=== PATIENT | female | born 1985 | race American Indian/Alaskan Native ===

== ENCOUNTER 2016-12-26 22:41 | Emergency (ER) | payer OTHER ==
--- NOTE | 2016-12-26 23:57 | Emergency Department Report ---
HPI - General Chief Complaint: Overdose Time Seen by Provider: 12/26/16 23:38 - HPI HPI: This is a 31-year-old female presents to the emergency department by EMS from home after she took about 8 Percocet with the intent of harming herself about one hour prior to presentation. She was feeling very sleepy/drowsy. EMS gave her a dose of Narcan and she had a blood sugar at that time of 50 and was given a one half amp of D50. Currently she is very quiet but denies any complaints. She does admit that she was doing to harm her self. Her is at bedside during the history and physical, with permission from the patient herself, but he does not appear to think that the patient did this to harm herself. She is about 3 months status post giving and says that there has been some depression since that time. She herself says that there is some previous depression. She denies any hallucinations or homicidal ideations. She denies any other past medical history. ED Past Medical Hx - Past Medical History Previous Medical History?: No Hx Hypertension: No Hx Congestive Heart Failure: No Hx Diabetes: No Hx Deep Vein Thrombosis: No Hx Renal Disease: No Hx Sickle Cell Disease: No Hx Seizures: No Hx Asthma: No Hx COPD: No Hx HIV: No - Surgical History Past Surgical History?: Yes Additional Surgical History: Tubal - Social History Smoking Status: Never Smoker Substance Use Type: None - Medications Home Medications: Home Medications Medication Instructions Recorded Confirmed Last Taken Type Docusate Sodium [Colace Clear CAP] 50 mg PO PRN PRN 12/26/16 12/26/16 12/26/16 History Ferrous Sulfate [Feosol] 325 mg PO TID 12/26/16 12/26/16 12/26/16 History Ibuprofen [Motrin] 800 mg PO Q8HR PRN 12/26/16 12/26/16 12/25/16 History oxyCODONE /ACETAMINOPHEN [Percocet 1 tab PO Q6HR PRN 12/26/16 12/26/16 12/26/16 History 5/325] ED Review of Systems ROS: Stated complaint: OVERDOSE Other details as noted in HPI Comment: All other systems reviewed and negative Constitutional: denies: chills, fever Eyes: denies: eye pain, eye discharge, vision change ENT: denies: ear pain, throat pain Respiratory: denies: cough, shortness of breath, wheezing Cardiovascular: denies: chest pain, palpitations Gastrointestinal: denies: abdominal pain, nausea, diarrhea Genitourinary: denies: urgency, dysuria, discharge Musculoskeletal: denies: back pain, joint swelling, arthralgia Skin: denies: rash, lesions Neurological: denies: headache, weakness, paresthesias Psychiatric: depression, suicidal thoughts. denies: auditory hallucinations, visual hallucinations, homicidal thoughts Physical Exam - Physical Exam Vital Signs: Vital Signs 12/26/16 23:17 Temperature 98.4 F Pulse Rate 60 Respiratory 16 Rate Blood Pressure 114/79 Blood Pressure 114/79 [Right] O2 Sat by Pulse 99 Oximetry Physical Exam: GENERAL: The patient is well-developed well-nourished. HENT: Normocephalic. Atraumatic. Patient has moist mucous membranes. EYES: Extraocular motions are intact. Pupils equal reactive to light bilaterally. NECK: Supple. Trachea is midline. CHEST/LUNGS: Clear to auscultation. There is no respiratory distress noted. HEART/CARDIOVASCULAR: Regular. There is no tachycardia. There is no gallop rub or murmur. ABDOMEN: Abdomen is soft, nontender. Patient has normal bowel sounds. There is no abdominal distention. SKIN: Skin is warm and dry. NEURO: The patient is awake, alert, and oriented. The patient is cooperative. The patient has no focal neurologic deficits. The patient has normal speech. MUSCULOSKELETAL: There is no tenderness or deformity. There is no limitation range of motion. There is no evidence of acute injury. PSYCH: Patient has a flat affect and appears depressed. ED Course Vital Signs 12/26/16 23:17 Temperature 98.4 F Pulse Rate 60 Respiratory 16 Rate Blood Pressure 114/79 Blood Pressure 114/79 [Right] O2 Sat by Pulse 99 Oximetry ED Medical Decision Making - Lab Data Result diagrams: 12/27/16 00:02 12/27/16 00:02 - EKG Data -: EKG Interpreted by Me EKG shows normal: sinus rhythm, axis, intervals, QRS complexes, ST-T waves Rate: normal - EKG Data When compared to previous EKG there are: previous EKG unavailable Interpretation: normal EKG - Medical Decision Making 31-year-old female presents to the emergency department after an overdose on Percocet. The patient admits that she did it to harm herself and has been dealing with what appears to be some depression. This reason she was made a 1013. We contacted poison control who recommended a 4 hour Tylenol level as well as the other usual overdose labs. EKG is unremarkable. Tylenol level is negative. Urine drug screen and urinalysis have not yet been obtained but the patient is not . Vital signs stable throughout her ED course. At this point the patient appears medically stable and has been monitored for multiple hours. She is medically cleared for psychiatric placement. - Differential Diagnosis depression, bipolar disorder, substance abuse, depression Critical Care Time: No Critical care attestation.: If time is entered above; I have spent that time in minutes in the direct care of this critically ill patient, excluding procedure time. ED Disposition Clinical Impression: depression, Suicidal ideations Suicide attempt by substance overdose Qualifiers: Encounter type: initial encounter Qualified Code(s): T65.92XA - Toxic effect of unspecified substance, intentional self-harm, initial encounter Disposition: DC/TX-65 PSY HOSP/PSY UNIT Is pt being admited?: No Condition: Stable Referrals: PRIMARY CARE [Primary Care Provider] - 3-5 Days Time of Disposition: 04:49
[2016-12-27 00:19] LABS: Basophils % (Auto) 0.3 % (0.0-1.8); Eosinophils % (Auto) 0.3 % (0.0-4.3); Hematocrit 35.4 % (30.3-42.9); Hemoglobin 11.5 gm/dl (10.1-14.3); Mean Corpuscular HGB Conc 33 % (30-34); Mean Corpuscular Hemoglobin 29 pg (28-32); Mean Corpuscular Volume 89 fl (79-97); Platelet Count 220 K/mm3 (140-440); Red Blood Count 3.99 M/mm3 (3.65-5.03); Red Cell Distribution Width 13.4 % (13.2-15.2)
[2016-12-27 00:28] LABS: INR 1.03 (0.87-1.13)
[2016-12-27 00:47] LABS: Anion Gap 18 mmol/L; Blood Urea Nitrogen 9 mg/dL (7-17); Calcium 8.9 mg/dL (8.4-10.2); Carbon Dioxide 23 mmol/L (22-30); Chloride 101.7 mmol/L (98-107); Glucose 102 mg/dL (65-100); Potassium 3.4 mmol/L (3.6-5.0); Sodium 139 mmol/L (137-145)
[2016-12-27 05:55] LABS: Alanine Aminotransferase 17 units/L (7-56); Albumin 3.8 g/dL (3.9-5); Albumin/Globulin Ratio 1.2 %; Alkaline Phosphatase 57 units/L (35-129); Total Protein 7.1 g/dL (6.3-8.2)
[2016-12-27 05:58] LABS: Bilirubin,Direct < 0.2 mg/dL (0-0.2)
[2016-12-27 06:05] LABS: Urine Drugs of Abuse Note Disclamer
[2016-12-27 06:38] LABS: Bilirubin,Urine NEG (Negative); Blood,Urine NEG (Negative); Ketones,Urine 80 mg/dL (Negative); Leukocyte Esterase,Urine TR (Negative); Mucus,Urine 3+ /HPF; Nitrite,Urine NEG (Negative); Urobilinogen,Urine < 2.0 mg/dL (<2.0)
--- NOTE | 2016-12-28 13:13 | Consultation ---
History of Present Illness - Reason for Consult Consult date: 12/28/16 Reason for consult: Mental Health Evaluation Requesting physician: TJ GOMEZ - Chief Complaint Chief complaint: "I wanted to " - History of Present Psychiatric Illness This is a 31-year-old female presents to the emergency department by EMS from home after she took about 8 Percocet with the intent of harming herself. Today patient is calm and cooperative during the assessment. She stated that she felt "overwhelmed and sad" prior taking the percocet pills. She stated she has 5 kids and don't have time for herself. She stated that her does help with the kids, but she take on most of the responsibility for their care. She denies prior suicidal attempts in the past. She did admit that she wanted to "" so she decided to take multiple percocet pills. She stated that she felt sad and withdrawn prior to taking the percocet pills. She stated that she felt this way previous after having her 5th child ( depression) in September 2016. She denies SI/HI's and AVH's. She could not rate her depression at this time. She report sleep disturbance and a poor appetite. She denies recreational drug use and alcohol consumption (etoh). Medications and Allergies Allergies Allergy/AdvReac Type Severity Reaction Status Date / Time No Known Allergies Allergy Verified 12/26/16 23:27 Home Medications Medication Instructions Recorded Confirmed Last Taken Type Docusate Sodium [Colace Clear CAP] 50 mg PO PRN PRN 12/26/16 12/26/16 12/26/16 History Ferrous Sulfate [Feosol] 325 mg PO TID 12/26/16 12/26/16 12/26/16 History Ibuprofen [Motrin] 800 mg PO Q8HR PRN 12/26/16 12/26/16 12/25/16 History oxyCODONE /ACETAMINOPHEN [Percocet 1 tab PO Q6HR PRN 12/26/16 12/26/16 12/26/16 History 5/325] Past psychiatric history - Past Medical History Past Medical History: No medical history Past Surgical History: - past Psychiatric treatment and history psychiatric treatment history: Stated that she see a PCP for all medical/MH issues. Denies a psy hx and fam psy hx. - Social History Social history: lives with family ([employer] Graduate) Mental Status Exam - Vital signs Last Vital Signs Temp 98 F 12/28/16 01:50 Pulse 76 12/28/16 01:50 Resp 16 12/27/16 20:05 BP 115/72 12/28/16 01:50 Pulse Ox 100 12/27/16 20:05 - Exam Narrative exam: ROS: (+) depression MSE: Appearance: calm, cooperative Behavior: regular eye contact Speech: regular rate and tone Mood: labile Affect: congruent to mood Thought Process: linear Thought Content: denies SI/HI's and AVH's Motor Activity: ambulatory Cognition: A/O x3 Insight: fair Judgment: fair Results Result Diagrams: 12/27/16 00:02 12/27/16 00:02 All other labs normal. Assessment and Plan Assessment and plan: Impression: Historical Dx: Depression. MDD severe type. Today patient is calm and cooperative during the assessment. Patient minimize her actions. Currently, patient is . DDx: R/O Bipolar Recommendation/Plan: Continue 1013 with placement to inpatient psy services. Patient does not want to take medication for depression. Discussed risk/ benefits of antidepressants.
--- NOTE | 2016-12-30 13:00 | Progress Note ---
Subjective - Reason for Consult Consult date: 12/30/16 Reason for consult: Psychiatry Follow-up - Chief Complaint Chief complaint: "I wanted to " This is a 31-year-old female presents to the emergency department by EMS from home after she took about 8 Percocet with the intent of harming herself. Today patient is calm and cooperative during the assessment. She stated that she does not need help, she was just stressed prior to her admission to [facility]. She could not tell me how she would handle a stressful situation in the future. She denies SI/HI's and AVH's. Patient did not want to discuss the details about her taking multiple percocet. Mental Status Exam - Vital signs Last Vital Signs Temp 98.4 F 12/29/16 15:16 Pulse 85 12/29/16 21:36 Resp 18 12/30/16 10:59 BP 129/89 12/29/16 21:36 Pulse Ox 99 12/29/16 21:36 - Exam Narrative exam: MSE: Appearance: calm, cooperative Behavior: regular eye contact Speech: regular rate and tone Mood: "okay" Affect: congruent to mood Thought Process: linear Thought Content: denies SI/HI's and AVH's Motor Activity: ambulatory Cognition: A/O x3 Insight: fair Judgment: fair Assessment and Plan Impression: Historical Dx: Depression. MDD severe type. Today patient is calm and cooperative during the assessment. Patient minimize her actions. Currently, patient is . Recommendation/Plan: Continue 1013 with placement to [facility] today. Patient does not want to take medication for depression. Discussed risk/ benefits of antidepressants. Currently, patient attend counseling sessions at [facility]. Discussed the benefits of therapy with patient. Discussed generalized coping skills with patient.
--- NOTE | 2016-12-30 20:26 | Emergency Department Report ---
Blank Doc - Documentation Documentation: This patient was accidentally sent to [place] instead of [facility] and she was not accepted there and therefore she was sent back to the emergency department and needs a new 1013 and transfer form. This patient was seen by myself a few days ago after attempting to harm herself with an overdose of Percocet secondary to depression. The patient has been stable within the emergency department. There have not been any new labs since . She still is medically cleared for psychiatric placement. Vital signs stable.
--- NOTE | 2016-12-31 15:09 | Event Note ---
Date: 12/31/16 This patient was returned to [facility] overnight from [facility]. I spoke with the patient in detail about her disposition. I explained that the psychiatry team will continue to assess her and patient safety is priority when a decision is made to rescind a 1013. Also, I explained that a 1013 is good for 7 days once signed. I spoke with her Mr Moore and explained to him the process. He stated that outpatient psy services for his has been set up once she is discharged.
--- NOTE | 2017-01-03 11:17 | Progress Note ---
Subjective - Reason for Consult Consult date: 01/03/17 Reason for consult: Psychiatry Follow-up - Chief Complaint Chief complaint: "I will like to be discharged" This is a 31-year-old female presents to the emergency department by EMS from home after she took about 8 Percocet with the intent of harming herself. Today patient is calm and cooperative during the assessment. She stated that she made a mistake by taking the percocet pills. She stated that she should have had better judgment. She look forward to being discharged and spending time with her family. She denies SI/HI's, AVH's, and depression. Mental Status Exam - Vital signs Last Vital Signs Temp 98.3 F 01/02/17 07:25 Pulse 85 01/02/17 07:25 Resp 16 01/02/17 08:45 BP 107/69 01/02/17 07:25 Pulse Ox 100 01/02/17 07:25 Assessment and Plan Impression: Historical Dx: Depression. MDD severe type. Today patient is calm and cooperative during the assessment. Patient is no threat to self. Patient will be returning home with her . I. This screening and assessment is based on information collected from the following sources: II. SUICIDE RISK SCREENING (within last 30 days): A.) Suicidal thoughts/behaviors: Overdose on 8 Percocet pills SUICIDE RISK ASSESSMENT III. FACTORS THAT INCREASE RISK: A.) Demographic and Substance Use Factors: None B.) Current/Recent Factors (within past 3 months): Psychosocial/Environmental Factors: History of Depression Physical Illness: None Cognitive/Psychological Factors: None C.) Historical Factors: None D.) Diagnostic/Symptom/Treatment Factors: None E.) Acute Risk Factor Severity (DESC; MILD/MOD/SEVERE): Mild Other factors for this individual that increase risk: None IV. FACTORS THAT DECREASE RISK: Resilience/Protective Factors: Patient is willing to seek therapy Other factors for this individual that decrease risk: Patient denies a desire to harm self V. Clinician's Formulation of Risk and Determination of level of Care: This is a 31 year-old AA female who was experiencing stress and overdosed on percocet pills. Patient was overwhelmed by stress and responsibilities being a parent to 4 children and a new born (September 2016). She stated since being at [facility] , she has thought about her actions. She stated that she should have reached out for help prior to taking multiple percocet pills. Her stated that he has set up outpatient psy services for his . She stated that she will be attending therapy sessions with her once discharged. Patient is currently . Since being hospitalized, she has become insightful about how to better address her current issues. Patient is not impaired by substance. She is able to take care of her ADLs and is not at imminent risk of harm to self or others. Consequently, it is the opinion of the treatment team that the patient is at low risk of suicide and does not meet criteria to continue an involuntary psychiatric hold. Estimation of Imminent Risk: Low due to the above explanation. Determination of Level of Care based on Suicide Risk: Outpatient follow-up. Narrative description of clinical reasoning: . Plan and Interventions based on Suicide Risk: This patient will likely be stepped down to an outpatient mental health center in the community upon discharge and follow-up within 7 days of her discharge from the hospital. VII. Discharge/After Hours Support Plan: Patient can return back to the ER, call 911 or crisis line if symptoms of depression, anxiety, suicidality return. Recommendation/Plan: Rescind 1013. Patient does not want to take medication for depression. Discussed risk/benefits of antidepressants. Currently, patient attend counseling sessions at her [facility]. Discussed the benefits of therapy with patient. Patient given outpatient psy services for [facility]. Discussed generalized coping skills with patient.
--- NOTE | 2017-01-03 12:45 | Event Note ---
Date: 01/03/17 Patient is seen and examined. She is not homicidal or suicidal at this time. She is alert and oriented 3, has a GCS of 15, NIH score of 0, walks with a steady gait, and is clinically sober at this time. Her 1013 has been discontinued by psychiatry, and she has no medical complaints at this time, she will be discharged with instructions to follow up. Return precautions are reviewed. Vital Signs 12/26/16 12/26/16 12/27/16 23:17 23:28 00:00 Temperature 98.4 F Pulse Rate 60 56 L Respiratory 16 14 Rate Blood Pressure 114/79 Blood Pressure 114/79 121/64 [Right] O2 Sat by Pulse 99 100 100 Oximetry 12/27/16 12/27/16 12/27/16 00:45 01:00 01:15 Temperature Pulse Rate 57 L 61 Respiratory 11 L 13 15 Rate Blood Pressure 126/69 126/69 Blood Pressure [Right] O2 Sat by Pulse 100 100 100 Oximetry 12/27/16 12/27/16 12/27/16 01:30 01:45 02:00 Temperature Pulse Rate 59 L 63 61 Respiratory 13 15 17 Rate Blood Pressure 118/66 118/66 118/66 Blood Pressure [Right] O2 Sat by Pulse 100 100 99 Oximetry 12/27/16 12/27/16 12/27/16 02:15 02:30 02:45 Temperature Pulse Rate 56 L 56 L 58 L Respiratory 18 15 16 Rate Blood Pressure 121/66 114/61 114/61 Blood Pressure [Right] O2 Sat by Pulse 100 100 100 Oximetry 12/27/16 12/27/16 12/27/16 03:01 03:15 03:30 Temperature Pulse Rate 60 58 L 57 L Respiratory 15 16 14 Rate Blood Pressure 115/56 115/56 114/63 Blood Pressure [Right] O2 Sat by Pulse 100 100 100 Oximetry 12/27/16 12/27/16 12/27/16 03:45 04:00 04:15 Temperature Pulse Rate 51 L 53 L 54 L Respiratory 16 17 18 Rate Blood Pressure 114/63 114/63 107/48 Blood Pressure [Right] O2 Sat by Pulse 99 100 100 Oximetry 12/27/16 12/27/16 12/27/16 04:30 04:45 05:00 Temperature Pulse Rate 60 58 L 60 Respiratory 16 18 21 Rate Blood Pressure 114/64 114/64 107/54 Blood Pressure [Right] O2 Sat by Pulse 100 100 100 Oximetry 12/27/16 12/27/16 12/27/16 05:15 05:30 05:45 Temperature Pulse Rate 59 L 57 L 68 Respiratory 18 16 18 Rate Blood Pressure 107/54 108/52 108/52 Blood Pressure [Right] O2 Sat by Pulse 99 97 100 Oximetry 12/27/16 12/27/16 12/27/16 06:00 06:15 06:30 Temperature Pulse Rate 60 81 60 Respiratory 16 20 16 Rate Blood Pressure 108/52 119/63 113/60 Blood Pressure [Right] O2 Sat by Pulse 97 97 97 Oximetry 12/27/16 12/27/16 12/27/16 06:45 07:00 07:15 Temperature Pulse Rate 66 71 83 Respiratory 17 21 15 Rate Blood Pressure 113/60 113/60 121/71 Blood Pressure [Right] O2 Sat by Pulse 98 98 100 Oximetry 12/27/16 12/27/16 12/27/16 07:30 07:45 08:00 Temperature 98.5 F Pulse Rate 70 69 69 Respiratory 15 15 23 Rate Blood Pressure 120/76 120/76 118/77 Blood Pressure 118/76 [Right] O2 Sat by Pulse 98 100 100 Oximetry 12/27/16 12/27/16 12/27/16 08:15 08:30 08:45 Temperature Pulse Rate Respiratory Rate Blood Pressure 118/76 116/61 120/76 Blood Pressure [Right] O2 Sat by Pulse 99 99 98 Oximetry 12/27/16 12/27/16 12/27/16 09:00 09:15 09:30 Temperature Pulse Rate Respiratory Rate Blood Pressure 123/58 123/58 133/66 Blood Pressure [Right] O2 Sat by Pulse 99 99 100 Oximetry 12/27/16 12/27/16 12/27/16 09:45 10:00 10:15 Temperature Pulse Rate Respiratory Rate Blood Pressure 133/66 113/56 123/58 Blood Pressure [Right] O2 Sat by Pulse 100 97 100 Oximetry 12/27/16 12/27/16 12/27/16 10:30 10:45 11:00 Temperature Pulse Rate Respiratory Rate Blood Pressure 127/68 127/68 132/77 Blood Pressure [Right] O2 Sat by Pulse 99 99 99 Oximetry 12/27/16 12/27/16 12/27/16 11:15 11:30 11:45 Temperature Pulse Rate Respiratory Rate Blood Pressure 132/77 113/60 113/60 Blood Pressure [Right] O2 Sat by Pulse 98 99 97 Oximetry 12/27/16 12/27/16 12/27/16 12:00 12:15 12:30 Temperature Pulse Rate Respiratory Rate Blood Pressure 112/60 113/60 105/62 Blood Pressure [Right] O2 Sat by Pulse 100 100 98 Oximetry 12/27/16 12/27/16 12/27/16 12:45 13:00 13:15 Temperature Pulse Rate Respiratory Rate Blood Pressure 112/60 119/67 105/62 Blood Pressure [Right] O2 Sat by Pulse 97 97 96 Oximetry 12/27/16 12/27/16 12/27/16 13:30 13:46 14:00 Temperature Pulse Rate Respiratory Rate Blood Pressure 121/72 121/72 113/54 Blood Pressure [Right] O2 Sat by Pulse 97 96 98 Oximetry 12/27/16 12/27/16 12/27/16 14:16 14:30 14:46 Temperature Pulse Rate Respiratory Rate Blood Pressure 113/54 118/69 118/69 Blood Pressure [Right] O2 Sat by Pulse 99 100 99 Oximetry 12/27/16 12/27/16 12/27/16 15:00 15:16 15:30 Temperature Pulse Rate Respiratory Rate Blood Pressure 125/77 118/69 112/72 Blood Pressure [Right] O2 Sat by Pulse 99 100 100 Oximetry 12/27/16 12/27/16 12/27/16 15:46 16:00 16:16 Temperature Pulse Rate Respiratory Rate Blood Pressure 112/72 112/72 149/86 Blood Pressure [Right] O2 Sat by Pulse 100 99 98 Oximetry 12/27/16 12/27/16 12/27/16 16:30 16:46 17:00 Temperature Pulse Rate Respiratory Rate Blood Pressure 149/86 122/102 124/77 Blood Pressure [Right] O2 Sat by Pulse 97 99 99 Oximetry 12/27/16 12/27/16 12/27/16 17:16 17:30 17:46 Temperature Pulse Rate Respiratory Rate Blood Pressure 124/77 120/64 120/64 Blood Pressure [Right] O2 Sat by Pulse 97 98 97 Oximetry 12/27/16 12/27/16 12/27/16 18:00 18:16 18:23 Temperature 99.1 F Pulse Rate 69 Respiratory 14 Rate Blood Pressure 108/54 108/54 Blood Pressure 120/64 [Right] O2 Sat by Pulse 98 96 98 Oximetry 12/27/16 12/28/16 12/28/16 20:05 01:50 08:00 Temperature 98.7 F 98 F 98.4 F Pulse Rate 85 76 68 Respiratory 16 16 Rate Blood Pressure Blood Pressure 127/86 115/72 121/77 [Right] O2 Sat by Pulse 100 99 Oximetry 12/28/16 12/29/16 12/29/16 19:15 15:16 21:36 Temperature 98 F 98.4 F Pulse Rate 74 88 85 Respiratory 18 16 17 Rate Blood Pressure Blood Pressure 114/72 125/81 129/89 [Right] O2 Sat by Pulse 100 100 99 Oximetry 12/30/16 12/30/16 12/30/16 10:00 10:59 20:46 Temperature 98.6 F 98.5 F Pulse Rate 68 84 Respiratory 18 18 18 Rate Blood Pressure Blood Pressure 138/85 149/98 [Right] O2 Sat by Pulse 97 99 Oximetry 12/31/16 12/31/16 12/31/16 10:00 11:59 23:49 Temperature 98.7 F 98.7 F Pulse Rate 81 86 Respiratory 18 18 16 Rate Blood Pressure Blood Pressure 140/88 120/81 [Right] O2 Sat by Pulse 99 99 99 Oximetry 01/01/17 01/01/17 01/01/17 10:00 11:42 22:00 Temperature 98.2 F 98.7 F Pulse Rate 76 86 Respiratory 18 18 18 Rate Blood Pressure Blood Pressure 120/83 120/81 [Right] O2 Sat by Pulse 99 99 99 Oximetry 01/02/17 01/02/17 07:25 08:45 Temperature 98.3 F Pulse Rate 85 Respiratory 16 16 Rate Blood Pressure Blood Pressure 107/69 [Right] O2 Sat by Pulse 100 Oximetry Lab Results 12/26/16 12/26/16 12/26/16 Range/Units 23:46 Unknown Unknown WBC (4.5-11.0) K/mm3 RBC (3.65-5.03) M/mm3 Hgb (10.1-14.3) gm/dl Hct (30.3-42.9) % MCV (79-97) fl MCH (28-32) pg MCHC (30-34) % RDW (13.2-15.2) % Plt Count (140-440) K/mm3 Lymph % (Auto) (13.4-35.0) % Jones % (Auto) (0.0-7.3) % Eos % (Auto) (0.0-4.3) % Baso % (Auto) (0.0-1.8) % Lymph # (1.2-5.4) K/mm3 Jones # (0.0-0.8) K/mm3 Eos # (0.0-0.4) K/mm3 Baso # (0.0-0.1) K/mm3 Seg Neutrophils % (40.0-70.0) % Seg Neutrophils # (1.8-7.7) K/mm3 PT (12.2-14.9) Sec. INR (0.87-1.13) Sodium (137-145) mmol/L Potassium (3.6-5.0) mmol/L Chloride (98-107) mmol/L Carbon Dioxide (22-30) mmol/L Anion Gap mmol/L BUN (7-17) mg/dL Creatinine (0.7-1.2) mg/dL Estimated GFR ml/min BUN/Creatinine Ratio % Glucose (65-100) mg/dL POC Glucose 104 (70-105) Calcium (8.4-10.2) mg/dL Total Bilirubin (0.1-1.2) mg/dL Direct Bilirubin (0-0.2) mg/dL AST (5-40) units/L ALT (7-56) units/L Alkaline Phosphatase (35-129) units/L Total Protein (6.3-8.2) g/dL Albumin (3.9-5) g/dL Albumin/Globulin Ratio % HCG, Qual (Negative) Urine Color Yellow (Yellow) Urine Turbidity Clear (Clear) Urine pH 5.0 (5.0-7.0) Ur Specific Morris 1.034 H (1.003-1.030) Urine Protein 30 mg/dl (Negative) mg/dL Urine Glucose (UA) Neg (Negative) mg/dL Urine Ketones 80 (Negative) mg/dL Urine Blood Neg (Negative) Urine Nitrite Neg (Negative) Urine Bilirubin Neg (Negative) Urine Urobilinogen < 2.0 (<2.0) mg/dL Ur Leukocyte Esterase Tr (Negative) Urine WBC (Auto) 16.0 H (0.0-6.0) /HPF Urine RBC (Auto) 4.0 (0.0-6.0) /HPF U Epithel Cells (Auto) 12.0 (0-13.0) /HPF Hyaline Casts 4 /LPF Urine Mucus 3+ /HPF Salicylates (2.8-20.0) mg/dL Urine Opiates Screen Presumptive negative Urine Methadone Screen Presumptive negative Acetaminophen (10.0-30.0) ug/mL Ur Barbiturates Screen Presumptive negative Ur Phencyclidine Scrn Presumptive negative Ur Amphetamines Screen Presumptive negative U Benzodiazepines Scrn Presumptive negative Urine Cocaine Screen Presumptive negative U Marijuana (THC) Screen Presumptive negative Drugs of Abuse Note Disclamer Plasma/Serum Alcohol (0-0.07) gm% 12/27/16 12/27/16 12/27/16 Range/Units 00:02 00:02 00:02 WBC (4.5-11.0) K/mm3 RBC (3.65-5.03) M/mm3 Hgb (10.1-14.3) gm/dl Hct (30.3-42.9) % MCV (79-97) fl MCH (28-32) pg MCHC (30-34) % RDW (13.2-15.2) % Plt Count (140-440) K/mm3 Lymph % (Auto) (13.4-35.0) % Jones % (Auto) (0.0-7.3) % Eos % (Auto) (0.0-4.3) % Baso % (Auto) (0.0-1.8) % Lymph # (1.2-5.4) K/mm3 Jones # (0.0-0.8) K/mm3 Eos # (0.0-0.4) K/mm3 Baso # (0.0-0.1) K/mm3 Seg Neutrophils % (40.0-70.0) % Seg Neutrophils # (1.8-7.7) K/mm3 PT (12.2-14.9) Sec. INR (0.87-1.13) Sodium 139 (137-145) mmol/L Potassium 3.4 L (3.6-5.0) mmol/L Chloride 101.7 (98-107) mmol/L Carbon Dioxide 23 (22-30) mmol/L Anion Gap 18 mmol/L BUN 9 (7-17) mg/dL Creatinine 0.6 L (0.7-1.2) mg/dL Estimated GFR > 60 ml/min BUN/Creatinine Ratio 15.00 % Glucose 102 H (65-100) mg/dL POC Glucose (70-105) Calcium 8.9 (8.4-10.2) mg/dL Total Bilirubin (0.1-1.2) mg/dL Direct Bilirubin (0-0.2) mg/dL AST (5-40) units/L ALT (7-56) units/L Alkaline Phosphatase (35-129) units/L Total Protein (6.3-8.2) g/dL Albumin (3.9-5) g/dL Albumin/Globulin Ratio % HCG, Qual (Negative) Urine Color (Yellow) Urine Turbidity (Clear) Urine pH (5.0-7.0) Ur Specific Morris (1.003-1.030) Urine Protein (Negative) mg/dL Urine Glucose (UA) (Negative) mg/dL Urine Ketones (Negative) mg/dL Urine Blood (Negative) Urine Nitrite (Negative) Urine Bilirubin (Negative) Urine Urobilinogen (<2.0) mg/dL Ur Leukocyte Esterase (Negative) Urine WBC (Auto) (0.0-6.0) /HPF Urine RBC (Auto) (0.0-6.0) /HPF U Epithel Cells (Auto) (0-13.0) /HPF Hyaline Casts /LPF Urine Mucus /HPF Salicylates < 0.3 L (2.8-20.0) mg/dL Urine Opiates Screen Urine Methadone Screen Acetaminophen (10.0-30.0) ug/mL Ur Barbiturates Screen Ur Phencyclidine Scrn Ur Amphetamines Screen U Benzodiazepines Scrn Urine Cocaine Screen U Marijuana (THC) Screen Drugs of Abuse Note Plasma/Serum Alcohol < 0.01 (0-0.07) gm% 12/27/16 12/27/16 12/27/16 Range/Units 00:02 00:02 00:02 WBC 7.0 (4.5-11.0) K/mm3 RBC 3.99 (3.65-5.03) M/mm3 Hgb 11.5 (10.1-14.3) gm/dl Hct 35.4 (30.3-42.9) % MCV 89 (79-97) fl MCH 29 (28-32) pg MCHC 33 (30-34) % RDW 13.4 (13.2-15.2) % Plt Count 220 (140-440) K/mm3 Lymph % (Auto) 27.7 (13.4-35.0) % Jones % (Auto) 7.4 H (0.0-7.3) % Eos % (Auto) 0.3 (0.0-4.3) % Baso % (Auto) 0.3 (0.0-1.8) % Lymph # 1.9 (1.2-5.4) K/mm3 Jones # 0.5 (0.0-0.8) K/mm3 Eos # 0.0 (0.0-0.4) K/mm3 Baso # 0.0 (0.0-0.1) K/mm3 Seg Neutrophils % 64.3 (40.0-70.0) % Seg Neutrophils # 4.5 (1.8-7.7) K/mm3 PT 13.4 (12.2-14.9) Sec. INR 1.03 (0.87-1.13) Sodium (137-145) mmol/L Potassium (3.6-5.0) mmol/L Chloride (98-107) mmol/L Carbon Dioxide (22-30) mmol/L Anion Gap mmol/L BUN (7-17) mg/dL Creatinine (0.7-1.2) mg/dL Estimated GFR ml/min BUN/Creatinine Ratio % Glucose (65-100) mg/dL POC Glucose (70-105) Calcium (8.4-10.2) mg/dL Total Bilirubin (0.1-1.2) mg/dL Direct Bilirubin (0-0.2) mg/dL AST (5-40) units/L ALT (7-56) units/L Alkaline Phosphatase (35-129) units/L Total Protein (6.3-8.2) g/dL Albumin (3.9-5) g/dL Albumin/Globulin Ratio % HCG, Qual (Negative) Urine Color (Yellow) Urine Turbidity (Clear) Urine pH (5.0-7.0) Ur Specific Morris (1.003-1.030) Urine Protein (Negative) mg/dL Urine Glucose (UA) (Negative) mg/dL Urine Ketones (Negative) mg/dL Urine Blood (Negative) Urine Nitrite (Negative) Urine Bilirubin (Negative) Urine Urobilinogen (<2.0) mg/dL Ur Leukocyte Esterase (Negative) Urine WBC (Auto) (0.0-6.0) /HPF Urine RBC (Auto) (0.0-6.0) /HPF U Epithel Cells (Auto) (0-13.0) /HPF Hyaline Casts /LPF Urine Mucus /HPF Salicylates (2.8-20.0) mg/dL Urine Opiates Screen Urine Methadone Screen Acetaminophen < 15.0 (10.0-30.0) ug/mL Ur Barbiturates Screen Ur Phencyclidine Scrn Ur Amphetamines Screen U Benzodiazepines Scrn Urine Cocaine Screen U Marijuana (THC) Screen Drugs of Abuse Note Plasma/Serum Alcohol (0-0.07) gm% 12/27/16 12/27/16 12/27/16 Range/Units 02:08 03:34 05:21 WBC (4.5-11.0) K/mm3 RBC (3.65-5.03) M/mm3 Hgb (10.1-14.3) gm/dl Hct (30.3-42.9) % MCV (79-97) fl MCH (28-32) pg MCHC (30-34) % RDW (13.2-15.2) % Plt Count (140-440) K/mm3 Lymph % (Auto) (13.4-35.0) % Jones % (Auto) (0.0-7.3) % Eos % (Auto) (0.0-4.3) % Baso % (Auto) (0.0-1.8) % Lymph # (1.2-5.4) K/mm3 Jones # (0.0-0.8) K/mm3 Eos # (0.0-0.4) K/mm3 Baso # (0.0-0.1) K/mm3 Seg Neutrophils % (40.0-70.0) % Seg Neutrophils # (1.8-7.7) K/mm3 PT (12.2-14.9) Sec. INR (0.87-1.13) Sodium (137-145) mmol/L Potassium (3.6-5.0) mmol/L Chloride (98-107) mmol/L Carbon Dioxide (22-30) mmol/L Anion Gap mmol/L BUN (7-17) mg/dL Creatinine (0.7-1.2) mg/dL Estimated GFR ml/min BUN/Creatinine Ratio % Glucose (65-100) mg/dL POC Glucose (70-105) Calcium (8.4-10.2) mg/dL Total Bilirubin 0.40 (0.1-1.2) mg/dL Direct Bilirubin < 0.2 (0-0.2) mg/dL AST 16 (5-40) units/L ALT 17 (7-56) units/L Alkaline Phosphatase 57 (35-129) units/L Total Protein 7.1 (6.3-8.2) g/dL Albumin 3.8 L (3.9-5) g/dL Albumin/Globulin Ratio 1.2 % HCG, Qual Negative (Negative) Urine Color (Yellow) Urine Turbidity (Clear) Urine pH (5.0-7.0) Ur Specific Morris (1.003-1.030) Urine Protein (Negative) mg/dL Urine Glucose (UA) (Negative) mg/dL Urine Ketones (Negative) mg/dL Urine Blood (Negative) Urine Nitrite (Negative) Urine Bilirubin (Negative) Urine Urobilinogen (<2.0) mg/dL Ur Leukocyte Esterase (Negative) Urine WBC (Auto) (0.0-6.0) /HPF Urine RBC (Auto) (0.0-6.0) /HPF U Epithel Cells (Auto) (0-13.0) /HPF Hyaline Casts /LPF Urine Mucus /HPF Salicylates (2.8-20.0) mg/dL Urine Opiates Screen Urine Methadone Screen Acetaminophen < 15.0 (10.0-30.0) ug/mL Ur Barbiturates Screen Ur Phencyclidine Scrn Ur Amphetamines Screen U Benzodiazepines Scrn Urine Cocaine Screen U Marijuana (THC) Screen Drugs of Abuse Note Plasma/Serum Alcohol (0-0.07) gm%
[2017-01-03 12:51] VITALS: BP 117/62
== END 2017-01-03 13:43 | disposition home or self-care (01) ==
LOC: EEVIPCON 22:41 → ED 22:41
DX: F53 Mental and behavioral disorders associated with the puerperium, not elsewhere classified (principal); F32.9 Major depressive disorder, single episode, unspecified; T65.92XA Toxic effect of unspecified substance, intentional self-harm, initial encounter; Y92.9 Unspecified place or not applicable
CPT/HCPCS: 36415; 80048; 80074; 80307; 81001; 82962; 84703; 85025; 85610; 93005; 93010; 99285; G0480; 80320